=== PATIENT | male | born 1980 | race Hispanic/Latino ===

== ENCOUNTER 2017-11-23 20:21 | Emergency (ER) | payer OTHER ==
[2017-11-23 20:35] VITALS: O2SAT 99
[2017-11-23] MEDS ORDERED: Sodium Chloride 0.9% 1,000 ML IV STA (21:03)
--- NOTE | 2017-11-23 21:10 | ED PDOC ---
HPI: Neurologic - General Time Seen by Provider: 11/23/17 20:39 Chief Complaint (Nursing): Dizziness/Lightheaded Chief Complaint (Provider): Dizziness Source: patient Exam Limitations: no limitations - History of Present Illness Timing/Duration: 24 hours Associated Symptoms: nausea/vomiting Allergies/Adverse Reactions: Allergies No Known Allergies Allergy (Verified 11/23/17 20:32) Home Medications: Ambulatory Orders Meclizine [Antivert] 25 mg PO Q6 PRN #16 tab 11/23/17 Ondansetron ODT [Zofran ODT] 4 mg PO Q6 PRN #10 odt 11/23/17 Additional Complaint(s): 37 year old male with no past medical history, presents with dizziness associated with a mild frontal headache and nausea, since yesterday. Reports he vomited twice yesterday but none today. No associated fever, cough, runny nose, shortness of breath, or chest pain. Dizziness worsens with movement or change in position. PMD: Dr. Danis Crum Past Medical History Reviewed: Historical Data, Nursing Documentation, Vital Signs Vital Signs: Last Vital Signs Temp 98.1 F 11/23/17 20:32 Pulse 88 11/23/17 20:32 Resp 18 11/23/17 20:32 BP 188/96 H 11/23/17 20:32 Pulse Ox 99 11/23/17 20:32 - Medical History PMH: No Chronic Diseases - Surgical History Surgical History: Appendectomy - Family History Family History: States: Unknown Family Hx - Social History Current smoker - smoking cessation education provided: No Alcohol: Occasional Drugs: Denies - Home Medications Home Medications: Ambulatory Orders Medication Instructions Recorded Meclizine [Antivert] 25 mg PO Q6 PRN #16 tab 11/23/17 Ondansetron ODT [Zofran ODT] 4 mg PO Q6 PRN #10 odt 11/23/17 - Allergies Allergies/Adverse Reactions: Allergies Allergy/AdvReac Type Severity Reaction Status Date / Time No Known Allergies Allergy Verified 11/23/17 20:32 Review of Systems ROS Statement: Except As Marked, All Systems Reviewed And Found Negative Constitutional: Negative for: Fever ENT: Negative for: Nose Congestion Cardiovascular: Negative for: Chest Pain Respiratory: Negative for: Cough, Shortness of Breath Gastrointestinal: Positive for: Nausea. Negative for: Vomiting Neurological: Positive for: Headache, Dizziness Physical Exam - Reviewed Nursing Documentation Reviewed: Yes Vital Signs Reviewed: Yes - Physical Exam Appears: Positive for: Non-toxic, No Acute Distress Head Exam: Positive for: ATRAUMATIC, NORMAL INSPECTION, NORMOCEPHALIC Skin: Positive for: Normal Color, Warm, Dry Eye Exam: Positive for: Normal appearance, EOMI, PERRL. Negative for: Nystagmus Neck: Positive for: Normal, Painless ROM, Supple Cardiovascular/Chest: Positive for: Regular Rate, Rhythm. Negative for: Murmur Respiratory: Positive for: Normal Breath Sounds. Negative for: Respiratory Distress Gastrointestinal/Abdominal: Positive for: Normal Exam, Soft. Negative for: Tenderness Extremity: Positive for: Normal ROM. Negative for: Pedal Edema, Deformity Neurologic/Psych: Positive for: Alert, Oriented, Other (+ Juan-Hallpike test) - Laboratory Results Result Diagrams: 11/23/17 21:22 11/23/17 21:22 - ECG O2 Sat by Pulse Oximetry: 99 (RA) Pulse Ox Interpretation: Normal Medical Decision Making Medical Decision Making: Time: 21:03 Initial Impression: 37 y/o male with vertiginous dizziness Initial Plan: --Labs --EKG --Trial of meclizine --Zofran --IV fluids --Pending reevaluation Time: 22:15 Upon reevaluation, patient reports improvement in symptoms. Stable for discharge home. Given prescriptions for zofran and meclizine. Patient will follow up with PMD for further evaluation. There is agreement to discharge plan. Return if symptoms persist or worsen. Scribe Attestation: Documented by Annabel Dunlap, acting as a scribe for Sammy Franco MD Provider Scribe Attestation: All medical record entries made by the Scribe were at my direction and personally dictated by me. I have reviewed the chart and agree that the record accurately reflects my personal performance of the history, physical exam, medical decision making, and the department course for this patient. I have also personally directed, reviewed, and agree with the discharge instructions and disposition. Disposition - Clinical Impression Clinical Impression: Vertigo - Patient ED Disposition Is Patient to be Admitted: No Counseled Patient/Family Regarding: Diagnosis, Need For Followup, Rx Given - Disposition Referrals: Danis Crum MD [Family Provider] - Disposition: Routine/Home Disposition Time: 22:15 Condition: STABLE Prescriptions: Meclizine [Antivert] 25 mg PO Q6 PRN #16 tab PRN Reason: Dizziness Ondansetron ODT [Zofran ODT] 4 mg PO Q6 PRN #10 odt PRN Reason: Nausea/Vomiting Instructions: Vertigo (ED) Forms: [facility] (Urdu)
[2017-11-23 21:26] LABS: BASO # 0.1 K/uL (0.0-0.2); BASO % 1.1 % (0.0-2.0); EOS # 0.2 K/uL (0.0-0.7); EOS % 1.9 % (0.0-4.0); HEMOGLOBIN 15.1 g/dL (12.0-18.0); LYMPH # 3.4 K/uL (1.0-4.3); LYMPH % 33.5 % (20.0-40.0); MEAN CELL VOLUME 88.2 fl (80.0-94.0); MEAN CORPUSCULAR HEMOGLOBIN 29.3 pg (27.0-31.0); MEAN CORPUSCULAR HGB CONC 33.3 g/dL (33.0-37.0); MEAN PLATELET VOLUME 8.4 fl (7.2-11.7); MONO # 1.1 K/uL (0.0-0.8); MONO % 10.9 % (0.0-10.0); NEUT # 5.3 K/uL (1.8-7.0); NEUT % 52.6 % (50.0-75.0); NRBC % 0.1 % (0.0-0.0); RBC 5.14 Mil/uL (4.40-5.90); RED CELL DISTRIBUTION WIDTH 13.5 % (11.5-14.5); WHITE BLOOD COUNT 10.1 K/uL (4.8-10.8)
[2017-11-23 21:48] LABS: ALB/GLOB RATIO 1.5 (1.0-2.1); ALBUMIN 4.8 g/dL (3.5-5.0); ALT/SGPT 55 U/L (21-72); AST/SGOT 29 U/L (17-59); BLOOD UREA NITROGEN 20 mg/dl (9-20); CALCIUM 9.8 mg/dL (8.4-10.2); GFR AFRICAN-AMERICAN > 60; GFR NON-AFRICAN AMERICAN > 60
[2017-11-23 22:26] VITALS: BP 135/80; PULSE 75; RESP 16; TEMP 97.9
--- NOTE | 2017-11-24 12:18 | CARD ---
APPROVED REPORT EKG Measurement Heart [id number] <Conclusion> Normal sinus rhythm Normal ECG
== END 2017-11-23 22:44 | disposition home or self-care (01) ==
LOC: H.ER 20:21
DX: R42 Dizziness and giddiness (principal)
CPT/HCPCS: 80053; 85025; 93005; 96360; 99283; J2405; J7040